=== PATIENT | female | born 1965 | race American Indian/Alaskan Native ===

== ENCOUNTER 2016-12-15 10:52 | Emergency (ER) | payer MEDICAID, OTHER ==
[~2016-12-15] VITALS: Ht 162.6 cm; Wt 87.2 kg
[2016-12-15 10:54] VITALS: BP 136/84
[2016-12-15] MEDS ORDERED: DIPH,PERTUSS(ACELL),TET VAC/PF 0.5 ML IM-VACC ONE ×2 (11:07→11:30)
[2016-12-15] MEDS ORDERED: LIDOCAINE 1%, 20ML ONE (11:07)
[2016-12-15] MEDS ORDERED: BACITRACIN ZINC OINT 500U/GM, 0.9 GM ONE (11:16)
[2016-12-15] MEDS ORDERED: LIDOCAINE 1%, 20ML SQ ONE (11:30)
== END 2016-12-15 11:40 | disposition home or self-care (01) ==
LOC: ED 11:22
DX: S91.341A Puncture wound with foreign body, right foot, initial encounter (principal); W45.8XXA Other foreign body or object entering through skin, initial encounter; Y93.89 Activity, other specified; Y99.8 Other external cause status; Y92.099 Unspecified place in other non-institutional residence as the place of occurrence of the external cause
CPT/HCPCS: 90471; 90715; 99284; J3490